=== PATIENT | male | born 1970 | race Caucasian/White ===

== ENCOUNTER → 2020-12-19 15:33 | Outpatient (CLI) | payer BC, SELFPAY ==
[2020-11-19 13:49] VITALS: BMI 24.3
[2020-12-19 17:17] LABS: PSA,Total - Annual Screen 0.32 ng/mL (0.00-4.00)
== END ==
PROVIDERS: PCP Internal Medicine; Referring Provider Internal Medicine; Visit Provider Internal Medicine
DX: Z12.5 Encounter for screening for malignant neoplasm of prostate (principal)
CPT/HCPCS: 36415; 84153; G0103

== ENCOUNTER 2021-11-18 15:54 | Outpatient (CLI) | payer BC, SELFPAY | END 2021-11-18 23:59 | disposition short-term general hospital (02) | LOC: LABSPEC 15:55 | PROVIDERS: PCP Internal Medicine; Referring Provider Physician Assistant Surgical; Visit Provider Physician Assistant Surgical | DX: U07.1 COVID-19 (principal) | CPT/HCPCS: 87635; U0003; U0005 ==

== ENCOUNTER 2023-01-29 12:32 | Emergency (ER) | payer OTHER, SELFPAY ==
[2023-01-29 12:32] VITALS: BP 145/87; PULSE 64; RESP 16; TEMP 36.6; O2SAT 100; BMI 25.7
--- NOTE | 2023-01-29 12:42 | RAD_ITS ---
STUDY: X-RAY - LEFT HAND REASON FOR EXAM: Male, 52 years old. INJURY TECHNIQUE: 3 view(s) of the hand. COMPARISON: None. FINDINGS: Normal radiocarpal articulation. Normal distal radioulnar joint. Normal visualized carpal bones. Normal carpal articulations Normal carpometacarpal articulation of the thumb. Normal second through fifth carpometacarpal joints. Normal metacarpi. Normal metacarpophalangeal joint of the thumb. Normal interphalangeal joint of the thumb. Normal proximal and distal phalanges of the thumb. Normal metacarpophalangeal joints of the second through fifth fingers. Normal proximal and distal interphalangeal joints of the second through fifth fingers. Normal phalanges of the second through fifth fingers. The soft tissue structures are unremarkable. RAD/Hand Min 3 Views IMPRESSION: Normal x-ray examination of the hand. Electronically Signed: Ranulfo Henderson MD at 12:54 EDT ,
--- NOTE | 2023-01-29 13:36 | CONS.ORTHO ---
HPI Consult Data Date of Consult: 01/29/23 HPI Narrative HPI Narrative: ROLAND HOLLIDAY, is a 52 M who presents I was called by the emergency department physician Dr. Logan today at 1:30 PM. Per that provider the patient had a Worker's Compensation claim injury laceration between the PIP and MCP on the left hand. No signs of tendon injury no signs of infection. Patient was already seen another provider 3 days ago placed on antibiotics. No signs of flexor tenosynovitis or any other need for urgent assessment or follow-up and was wondering about arranging care as an outpatient. [facility] Medical History (Updated 01/29/23 @ 13:38 by Theo Barksdale MD) Asthma Hyperlipemia Hypertriglyceridemia Laceration of left hand Seasonal allergies Home Medications clotrimazole-betamethasone 1 %-0.05 % topical cream 1 applic topical BID #15 grams 11/19/20 [Rx Last Taken Unknown] Allergy/AdvReac Type Severity Reaction Status Date / Time No Known Allergies Allergy Verified 01/29/23 12:36 Family History (Updated 11/19/20 @ 13:58 by Lucero Vanegas) Other Family history not known due to adoption Social History (Updated 11/19/20 @ 15:[address] Chari Gutierrez MD) Smoking Status: Never smoker alcohol intake: never substance use type: does not use what type of physical activity do you participate in: running, bicycling and swimming frequency: 5-6 times per week Vital Signs Vital Signs Vital Signs: 01/29/23 12:32 Temperature 98 F Temperature Source Temporal Pulse Rate 64 Respiratory Rate 16 Blood Pressure 145/87 H Blood Pressure Mean 106 Pulse Ox 100 Oxygen Delivery Method Room Air Weight Weight: 190 lb 3 oz Body Mass Index (BMI) 25.7 Radiology Impression Hand X-Ray 01/29/23 12:42 IMPRESSION: Normal x-ray examination of the hand. Electronically Signed: Ranulfo Henderson MD at 12:54 EDT , MR#:? [id number] Acct: [id number] Name:ROLAND NEVAREZ Rep #: [id number] :?? 1970 M 52 ? From:? ? Harsh Henderson MD PCP: Dr. Chari Gutierrez MD ? Status: PRE ER Study: Hand Min 3 Views ? Date of Exam: 01/29/23 Exam# [id number] ? Ordering Dr:? Provider,Ed P. STUDY: ? X-RAY - LEFT HAND REASON FOR EXAM: ? Male, 52 years old.? INJURY TECHNIQUE: ? 3 view(s) of the hand. COMPARISON: ? None. FINDINGS: Normal radiocarpal articulation.? Normal distal radioulnar joint. Normal visualized carpal bones.? Normal carpal articulations Normal carpometacarpal articulation of the thumb.? Normal second through fifth carpometacarpal joints. Normal metacarpi. Normal metacarpophalangeal joint of the thumb.? Normal interphalangeal joint of the thumb.? Normal proximal and distal phalanges of the thumb. Normal metacarpophalangeal joints of the second through fifth fingers. Normal proximal and distal interphalangeal joints of the second through fifth fingers.? Normal phalanges of the second through fifth fingers. The soft tissue structures are unremarkable. RAD/Hand Min 3 Views IMPRESSION: Normal x-ray examination of the hand. ? Electronically Signed: Ranulfo Henderson MD at 12:54 EDT , I agree with the radiologist interpretation. Assessment & Plan Assessment/Plan (1) Laceration of left hand: PLAN: 52-year-old man with a Worker's Compensation claim laceration left hand without any signs of an infection or tendon disruption or any other injuries that would require or necessitate urgent assessment or for the patient to be seen today on an urgent basis according to Dr. Logan and I have not been asked to formally come in to assess the patient therefore I think outpatient follow-up this coming week on Wednesday certainly appropriate. The emergency department physician has placed the patient on 2 different antibiotics with appropriate counseling given on infectious symptoms other warning signs to watch out for and appropriate outpatient follow-up and dressing care instructions.
--- NOTE | 2023-01-29 13:50 | EX.ED.DYSGE1 ---
HPI History of Present Illness Chief Complaint: Wound Detail of Chief Complaint: Hand swelling Informant: patient Narrative Narrative: Patient presents from [place] secondary to left hand swelling. He injured his left index finger on Wednesday after stabbing his finger with a pair of scissors. The patient was started on Keflex on Wednesday. He went back today for follow-up appointment and due to continued swelling they felt he needed to be seen by a specialist. Hand surgeons in [facility] were not available today so he was told to come to the emergency room. He has not had significant redness. There is been no drainage from the wound. He has been intermittently elevating his hand. He is currently on Keflex [address] [facility] Medical History (Updated 01/29/23 @ 13:[address] Lorna Emery MD) Asthma Hyperlipemia Hypertriglyceridemia Laceration of left hand Seasonal allergies Home Medications clotrimazole-betamethasone 1 %-0.05 % topical cream 1 applic topical BID #15 grams 11/19/20 [Rx Last Taken Unknown] sulfamethoxazole 800 mg-trimethoprim 160 mg tablet (Bactrim DS) 1 tab PO DAILY 7 days #7 tabs 01/29/23 [Rx Last Taken Unknown] Allergy/AdvReac Type Severity Reaction Status Date / Time No Known Allergies Allergy Verified 01/29/23 12:36 Family History Other Family history not known due to adoption Social History Smoking Status: Never smoker alcohol intake: never substance use type: does not use what type of physical activity do you participate in: running, bicycling and swimming frequency: 5-6 times per week ROS ROS ED Constitutional Constitutional ED: Denies chills or fever(s) Eyes Eyes: Denies discharge from eye(s) ENT ENT ED: Denies discharge from eye(s), rhinorrhea or sore throat Cardiovascular Cardiovascular: Denies chest pain Respiratory/Chest Respiratory/Chest: Denies cough or dyspnea Gastrointestinal Gastrointestinal: Denies abdominal pain, nausea or vomiting Musculoskeletal Musculoskeletal: Reports extremity pain; Denies back pain Integumentary Denies Abrasions or rash Endocrine Endocrinology: Denies polydipsia or polyuria Allergic/Immunologic Allergic/Immunologic ED: Denies lip swelling or urticaria EXAM Physical Exam Const Vital Signs: 01/29/23 12:32 Temperature 98 F Temperature Source Temporal Pulse Rate 64 Respiratory Rate 16 Blood Pressure 145/87 H Blood Pressure Mean 106 Pulse Ox 100 Oxygen Delivery Method Room Air Positive well nourished and well developed General Appearance ED: well developed HEENT Reports normocephalic and head/scalp atraumatic Eyes PERRL and EOMs intact bilaterally Neck supple Resp normal respiratory effort Cardio regular rate and regular rhythm GI Palpation: soft Extremity Extremity Narrative: Healing stab incision to the radial aspect of the left index finger between the MCP joint and the PIP joint. No surrounding erythema. No fluctuance. No drainage. Patient does have mild swelling noted to the index and third finger. There is no focal tenderness along the flexor or extensor tendon. He does have decreased range of motion secondary to edema. Neuro oriented x3 Sensorium / Orientation: alert Psych mental status grossly normal MDM MDM MDM Narrative Medical decision making narrative: Left hand x-rays were obtained per nursing protocol. On my review there is some mild swelling with no evidence of foreign body or bony injury. Radiology interpretation is reviewed. I spoke Dr. Barksdale, on-call for orthopedics. He feels that the patient can be followed up here locally as there is no tendon involvement. He would not need to see a hand surgeon per se. I will start the patient on Bactrim for double antibiotic coverage. My suspicion is that swelling is more from inflammation as opposed to infection. We discussed the importance of hand elevation and using his hand to keep the muscles loose. Return instructions given. Radiography Diagnostic Testing: Clinical Impression(s) from Imaging Studies Hand X-Ray 01/29/23 12:42 IMPRESSION: Normal x-ray examination of the hand. Electronically Signed: Ranulfo Henderson MD at 12:54 EDT , Discharge Plan Triage Chief Complaint: Wound ED Provider: Lorna Emery Dx/Rx/DC Orders Clinical Impression: Puncture wound of left hand Instructions: ED Puncture Wound (General) Prescriptions: New sulfamethoxazole-trimethoprim [Bactrim DS] 800-160 mg tablet 1 tab PO DAILY 7 Days Qty: 7 0RF No Action clotrimazole-betamethasone 1-0.05 % cream 1 applic TOPICAL BID Qty: 15 1RF Rx Instructions: Treat for 14 days. Primary Care Provider: Chari Gutierrez Referrals: Chari Gutierrez MD [Primary Care Provider] - Theo Barksdale MD [Med Staff - Active Staff] - 5-7 Days Disposition Disposition: Home, Self Care
== END 2023-01-29 14:09 | disposition home or self-care (01) ==
LOC: ED 14:05
PROVIDERS: Emergency Provider Emergency Medicine; PCP Internal Medicine; Visit Provider Emergency Medicine
DX: S61.432A Puncture wound without foreign body of left hand, initial encounter (principal); E78.5 Hyperlipidemia, unspecified; M79.89 Other specified soft tissue disorders; W27.2XXA Contact with scissors, initial encounter; Y99.0 Civilian activity done for income or pay
CPT/HCPCS: 73130; 99282